=== PATIENT | female | born 1935 | race Caucasian/White ===

== ENCOUNTER 2016-11-24 12:08 | Inpatient (IN) | payer MEDICARE, MEDICAID ==
[~2016-11-24] VITALS: Ht 160 cm; Wt 68.0 kg
[2016-11-24 13:33] LABS: *BILIRUBIN,URIN NEGATIVE (NEGATIVE); *BLOOD, URINE 1+ (NEGATIVE); *CLARITY,URINE CLEAR (CLEAR); *COLOR,URINE YELLOW (YELLOW); *KETONES,URINE NEGATIVE (NEGATIVE); *PROTEIN,URINE 1+ (NEGATIVE); *UROBILINOGEN,URINE 0.2 E.U./dl (NORMAL); LEUKOCYTE ESTERASE ,URINE 1+ (NEGATIVE); NITRITE, URINE NEGATIVE (NEGATIVE); PH,URINE 5.5 (5.0-8.0); UGLUCOSE NEGATIVE (NEGATIVE)
[2016-11-24] MEDS ORDERED: EPOE1VIA12 IJ (13:38)
[2016-11-24] MEDS ORDERED: BUSPAR PO (13:38)
[2016-11-24] MEDS ORDERED: QUET25TA PO (13:38)
[2016-11-24] MEDS ORDERED: OMEP20CA10 PO (13:38)
[2016-11-24] MEDS ORDERED: ASPI81TA31 PO (13:38)
[2016-11-24] MEDS ORDERED: ACET325T53 PO (13:38)
[2016-11-24] MEDS ORDERED: LOSA50TA21 PO (13:38)
[2016-11-24] MEDS ORDERED: FOLI0.8T23 PO (13:38)
[2016-11-24] MEDS ORDERED: LEVO75TA7 PO (13:38)
[2016-11-24] MEDS ORDERED: DONE10TA44 PO (13:38)
[2016-11-24] MEDS ORDERED: TEMA7.5C PO (13:38)
[2016-11-24] MEDS ORDERED: MAGN400T6 PO (13:38)
[2016-11-24] MEDS ORDERED: ONDA4TAB5 PO (13:38)
[2016-11-24] MEDS ORDERED: CARV12.52 PO (13:38)
[2016-11-24 13:45] LABS: *AMPHETAMINE, URINE NEGATIVE (NEGATIVE); *BARBITURATE, URINE NEGATIVE (NEGATIVE); *CANNABINOID, URINE NEGATIVE (NEGATIVE); *COCCAINE, URINE NEGATIVE (NEGATIVE); *OPIATE, URINE NEGATIVE (NEGATIVE); *PHENCYCLIDINE SCREEN,URINE NEGATIVE (NEGATIVE)
[2016-11-24 13:51] LABS: BACTERIA,URINE RARE /HPF (NONE SEEN); SQUAMOUS EPITHELIAL CELL,UR FEW /HPF (NONE SEEN)
[2016-11-24 14:02] LABS: BASOPHILS % (AUTO) 0.5 % (0.0-2.0); EOSINOPHILS # (AUTO) 0.2 K/uL (0.0-0.7); EOSINOPHILS % (AUTO) 2.8 % (0.0-7.0); HEMOGLOBIN 11.2 G/DL (12.0-16.0); LYMPHOCYTES # (AUTO) 1.8 K/UL (0.8-4.8); LYMPHOCYTES % (AUTO) 26.4 % (20.5-51.5); MEAN CORPUSCULAR HEMOGLOBIN 29.3 UUG (27.0-31.0); MEAN CORPUSCULAR HGB CONC 33 g/dL (32.0-37.0); MEAN CORPUSCULAR VOLUME 88.8 FL (81.0-99.0); MONOCYTES # (AUTO) 0.5 K/UL (0.1-1.30); MONOCYTES % (AUTO) 7.9 % (0.0-11.0); NEUTROPHILS # (AUTO) 4.4 K/UL (1.8-8.9); NEUTROPHILS % (AUTO) 62.4 % (38.5-71.5); PLATELET COUNT (AUTO) 173 K/UL (150-450); RED BLOOD CELL COUNT(AUTO) 3.83 MIL/UL (4.2-5.4); WHITE BLOOD COUNT (AUTO) 6.9 K/UL (4.0-11.2)
[2016-11-24 14:10] LABS: CARBON DIOXIDE 21 mmol/L (21-32); CHLORIDE 104 mmol/L (98-107); CREATININE 2.2 mg/dL (0.6-1.3); GLUCOSE 128 mg/dL (74-106); POTASSIUM 4.6 mmol/L (3.5-5.1); UREA NITROGEN, BLOOD 37 mg/dL (7-18)
[2016-11-24 14:15] LABS: ALANINE AMINOTRANSFERASE 17 U/L (14-59); ALKALINE PHOSPHATASE 45 U/L (50-136); ASPARTATE AMINOTRANSFERASE 14 U/L (15-37); BILIRUBIN,DIRECT 0.1 mg/dL (0.0-0.2); BILIRUBIN,TOTAL 0.3 mg/dL (0.2-1.0); TOTAL PROTEIN, SERUM 7.9 g/dL (6.4-8.2)
[2016-11-24 14:23] LABS: THYROID STIMULATING HORMONE 1.086 mIU/mL (0.358-3.740)
[2016-11-24 14:26] LABS: ETHANOL < 3 MG/DL (0-0)
[2016-11-24] MEDS ORDERED: LORAZEPAM 0.5 MG TABLET PO ONE (14:45)
--- NOTE | 2016-11-24 14:50 | NUR ---
Pt placed on 5150 hold by Robert Arreaga.
[2016-11-24] MEDS ORDERED: LORAZEPAM 1 MG TABLET ONE (14:51)
--- NOTE | 2016-11-24 14:59 | NUR ---
SBAR report given to Marisol via telephone.
[2016-11-24 15:00] VITALS: BP 144/68
--- NOTE | 2016-11-24 15:15 | NUR ---
Received this admission from ER per zacarias, 81 yo female, came from [facility] admitted increased agitation towards staff and confusion placed on a 5150 hold for gravely disabled. Routine admission care rendered. Awake, alert, oriented to self. Able to move all extremities on purpose, unsteady gait, ambulating in the hallway. Provided a FWW.
[2016-11-24] MEDS ORDERED: MAGNESIUM HYDROXIDE 30 ML LIQUID UDC PO PRN (16:00)
[2016-11-24] MEDS ORDERED: MAG HYDROX/AL HYDROX/SIMETH 30 ML LIQUID UDC PO PRN (16:00)
[2016-11-24 20:00] VITALS: BP 139/67
[2016-11-24] MEDS ORDERED: hydrALAZINE HCL 25 MG TABLET PO PRN (22:45)
[2016-11-24] MEDS ORDERED: ONDANSETRON HCL 4 MG TABLET PO PRN (22:45)
[2016-11-24] MEDS: TEMAZEPAM 7.5 MG CAPSULE PO PRN (23:10)
[2016-11-24] MEDS ORDERED: SULFAMETH/TRIMETH 800/160 MG TABLET ONE (23:11)
[2016-11-25] MEDS: LORAZEPAM 0.5 MG TABLET PO PRN (02:51)
[2016-11-25] MEDS: ACETAMINOPHEN 325 MG TABLET PO PRN ×2 (02:51→12:22)
[2016-11-25] MEDS ORDERED: LORAZEPAM 0.5 MG TABLET PO PRN (04:30)
[2016-11-25] MEDS ORDERED: LORAZEPAM 0.5 MG TABLET ONE (04:57)
[2016-11-25] MEDS: PANTOPRAZOLE SODIUM 40 MG TABLET.DR PO SCH (07:00)
[2016-11-25 07:30] VITALS: BP 153/73
[2016-11-25] MEDS ORDERED: SULFAMETH/TRIMETH 800/160 MG TABLET PO SCH (09:00)
[2016-11-25] MEDS: MAGNESIUM OXIDE 400 MG TABLET PO SCH (09:52)
[2016-11-25] MEDS: CARVEDILOL 12.5 MG TABLET PO SCH ×2 (09:52→16:50)
[2016-11-25] MEDS: ASPIRIN 81 MG TAB.CHEW PO SCH (09:52)
[2016-11-25] MEDS: FOLIC ACID/VITAMIN B COMP W-C TABLET PO SCH (09:53)
[2016-11-25] MEDS: LEVOTHYROXINE SODIUM 75 MCG TABLET PO SCH (09:54)
[2016-11-25] MEDS ORDERED: DEXTROSE 50% 50 ML DISP.SYRIN IV PRN (10:15)
[2016-11-25] MEDS: LOSARTAN POTASSIUM 50 MG TABLET PO SCH (12:08)
[2016-11-25] MEDS: BLOOD SUGAR DIAGNOSTIC 1 EACH STRIP VI SCH ×3 (12:08→21:14)
[2016-11-25] MEDS: INSULIN REGULAR, HUMAN 300 UNIT/3 ML VIAL SQ PRN (12:26)
--- NOTE | 2016-11-25 13:00 | NUR ---
PATIENT TAKEN TO ROOM AFTER LUNCH. PATIENT IS TIRED.
[2016-11-25 15:19] VITALS: BP 106/50
--- NOTE | 2016-11-25 16:28 | NUR ---
Spoke to SUZANNA Vega, pt sleeping. Will do blev tmrw morning
--- NOTE | 2016-11-25 18:50 | NUR ---
PATIENT SLEEPING SINCE 1300.
[2016-11-25 20:43] VITALS: BP 123/54
[2016-11-25] MEDS: SULFAMETH/TRIMETH 800/160 MG TABLET PO SCH (20:57)
[2016-11-25] MEDS: QUETIAPINE FUMARATE 25 MG TABLET PO SCH (20:57)
--- NOTE | 2016-11-25 22:01 | NUR ---
Received a phone call from Dr. Bustillos: if patient still sleeping, do not give Seroquel 12.5mg PO at HS. At approx. 2014, patient noted awake in her bed. She asked to use the bathroom, then she was helped to the toilet where she urinate, then was assisted to her bed. Seroquel was then given. Patient noted calm and cooperative at this time. We will continue to monitor.
[2016-11-26] MEDS: LEVOTHYROXINE SODIUM 75 MCG TABLET PO SCH (06:18)
[2016-11-26] MEDS: PANTOPRAZOLE SODIUM 40 MG TABLET.DR PO SCH (06:18)
[2016-11-26] MEDS: BLOOD SUGAR DIAGNOSTIC 1 EACH STRIP VI SCH ×4 (06:56→21:35)
[2016-11-26 07:23] LABS: BASOPHILS % (AUTO) 0.7 % (0.0-2.0); EOSINOPHILS # (AUTO) 0.1 K/uL (0.0-0.7); EOSINOPHILS % (AUTO) 1.8 % (0.0-7.0); HEMATOCRIT 33.7 % (37-47); HEMOGLOBIN 11.1 G/DL (12.0-16.0); LYMPHOCYTES # (AUTO) 1.5 K/UL (0.8-4.8); LYMPHOCYTES % (AUTO) 25.6 % (20.5-51.5); MEAN CORPUSCULAR HEMOGLOBIN 29.4 UUG (27.0-31.0); MEAN CORPUSCULAR HGB CONC 33 g/dL (32.0-37.0); MEAN CORPUSCULAR VOLUME 89.1 FL (81.0-99.0); MONOCYTES # (AUTO) 0.5 K/UL (0.1-1.30); MONOCYTES % (AUTO) 9.3 % (0.0-11.0); NEUTROPHILS # (AUTO) 3.8 K/UL (1.8-8.9); NEUTROPHILS % (AUTO) 62.6 % (38.5-71.5); PLATELET COUNT (AUTO) 167 K/UL (150-450); RED BLOOD CELL COUNT(AUTO) 3.79 MIL/UL (4.2-5.4); WHITE BLOOD COUNT (AUTO) 5.9 K/UL (4.0-11.2)
[2016-11-26 07:48] LABS: ALANINE AMINOTRANSFERASE 16 U/L (14-59); ALKALINE PHOSPHATASE 41 U/L (50-136); ASPARTATE AMINOTRANSFERASE 18 U/L (15-37); BILIRUBIN,TOTAL 0.4 mg/dL (0.2-1.0); CARBON DIOXIDE 22 mmol/L (21-32); CHLORIDE 106 mmol/L (98-107); CHOLESTEROL 206 mg/dL (<200); CREATININE 2.4 mg/dL (0.6-1.3); GLUCOSE 105 mg/dL (74-106); HDL CHOLESTEROL 59 mg/dL (40-60); MAGNESIUM 1.6 mg/dL (1.8-2.4); PHOSPHOROUS 3.8 mg/dL (2.5-4.9); POTASSIUM 4.7 mmol/L (3.5-5.1); TOTAL PROTEIN, SERUM 7.1 g/dL (6.4-8.2); TRIGLYCERIDES 86 MG/DL (30-150); UREA NITROGEN, BLOOD 36 mg/dL (7-18)
--- NOTE | 2016-11-26 08:00 | NUR ---
PATIENT STILL LETHARGIC AND DEMANDING TOO STAY IN BED , ORAL INTAKE POOR WITH FREQUENT URINATION TRIPS TO [facility] WITH 1 PERSON ASSIST, CONFUSED DOESN T KNOW WHERE SHE IS PER PT , CONTINUE TO MONITOR PT FOR SAFETY
[2016-11-26] MEDS: CARVEDILOL 12.5 MG TABLET PO SCH ×2 (09:32→16:50)
[2016-11-26] MEDS: LOSARTAN POTASSIUM 50 MG TABLET PO SCH (09:33)
[2016-11-26] MEDS: FOLIC ACID/VITAMIN B COMP W-C TABLET PO SCH (09:33)
[2016-11-26] MEDS: ASPIRIN 81 MG TAB.CHEW PO SCH (09:33)
[2016-11-26] MEDS: MAGNESIUM OXIDE 400 MG TABLET PO SCH (09:33)
[2016-11-26] MEDS ORDERED: MAGNESIUM OXIDE 400 MG TABLET PO ONE (10:30)
--- NOTE | 2016-11-26 12:57 | NUR ---
Initial discharge instructions: The patient resides at [facility] ([facility]) [[address] [place] [address]; ]. ALANA spoke with Leyla in admissions who stated that they will accept the patient back when she is stable and ready for discharge. ALANA spoke with the patient's daughter/KEN Mckenzie who stated that she would like for the patient to return to [facility] upon discharge. ALANA will speak with patient, family, and MD regarding most appropriate discharge plans. SS will form a safe and proper discharge.
[2016-11-26] MEDS: INSULIN REGULAR, HUMAN 300 UNIT/3 ML VIAL SQ PRN ×3 (13:12→21:40)
[2016-11-26] MEDS: ACETAMINOPHEN 325 MG TABLET PO PRN (15:36)
[2016-11-26 16:00] VITALS: BP 128/63
[2016-11-26] MEDS: LORAZEPAM 0.5 MG TABLET PO PRN (16:04)
--- NOTE | 2016-11-26 16:52 | NUR ---
insulin not required blood sugar 1s 110
[2016-11-26] MEDS: SULFAMETH/TRIMETH 800/160 MG TABLET PO SCH (21:23)
[2016-11-26] MEDS: ATORVASTATIN 10 MG TABLET PO SCH (21:23)
[2016-11-26] MEDS: QUETIAPINE FUMARATE 25 MG TABLET PO SCH (21:23)
[2016-11-26 21:54] VITALS: BP 113/58
--- NOTE | 2016-11-26 22:00 | NUR ---
received to care, lying in hr bed, isolative, but pleasant, upon approach. compliant with medications and staff direction. as of 2199, she appears to be asleep, in bed. no distress noted. will continue to monitor closely.
--- NOTE | 2016-11-27 06:00 | NUR ---
slept 5.5 hours, total
[2016-11-27] MEDS: PANTOPRAZOLE SODIUM 40 MG TABLET.DR PO SCH (06:31)
[2016-11-27] MEDS: BLOOD SUGAR DIAGNOSTIC 1 EACH STRIP VI SCH ×4 (06:32→21:56)
[2016-11-27] MEDS: LEVOTHYROXINE SODIUM 75 MCG TABLET PO SCH (06:32)
[2016-11-27 07:30] VITALS: BP 132/46
[2016-11-27] MEDS: ASPIRIN 81 MG TAB.CHEW PO SCH (08:41)
[2016-11-27] MEDS: CARVEDILOL 12.5 MG TABLET PO SCH ×2 (08:42→17:49)
[2016-11-27] MEDS: FOLIC ACID/VITAMIN B COMP W-C TABLET PO SCH (08:42)
[2016-11-27] MEDS: LOSARTAN POTASSIUM 50 MG TABLET PO SCH (08:42)
[2016-11-27] MEDS: MAGNESIUM OXIDE 400 MG TABLET PO SCH (08:42)
[2016-11-27] MEDS: INSULIN REGULAR, HUMAN 300 UNIT/3 ML VIAL SQ PRN ×3 (08:43→17:45)
[2016-11-27] MEDS: LORAZEPAM 0.5 MG TABLET PO PRN (10:18)
[2016-11-27 16:00] VITALS: BP 103/50
[2016-11-27] MEDS: QUETIAPINE FUMARATE 25 MG TABLET PO SCH ×2 (17:46→21:44)
[2016-11-27 18:36] LABS: *URINE TOTAL PROTEIN RANDOM 54.2 mg/dL (<150/24HR)
[2016-11-27 20:39] VITALS: BP 112/60
[2016-11-27] MEDS: ATORVASTATIN 10 MG TABLET PO SCH (21:44)
--- NOTE | 2016-11-27 22:00 | NUR ---
received to care, lying in bed, pleasant, upon approach. compliant with medications and staff direction. assisted to bathroom, as needed. as of 0, she appears to be asleep, in bed. no distress noted. will continue to monitor closely.
[2016-11-27] MEDS: TEMAZEPAM 7.5 MG CAPSULE PO PRN (23:59)
--- NOTE | 2016-11-27 23:59 | NUR ---
PRN restoril given, for insomnia.
--- NOTE | 2016-11-28 00:30 | NUR ---
appears to be asleep. no distress noted.
--- NOTE | 2016-11-28 06:00 | NUR ---
slept 4.5 hours, total
[2016-11-28] MEDS: PANTOPRAZOLE SODIUM 40 MG TABLET.DR PO SCH (06:24)
[2016-11-28] MEDS: BLOOD SUGAR DIAGNOSTIC 1 EACH STRIP VI SCH ×4 (06:25→21:08)
[2016-11-28] MEDS: LEVOTHYROXINE SODIUM 75 MCG TABLET PO SCH (06:25)
[2016-11-28 07:30] VITALS: BP 117/51
[2016-11-28 07:34] LABS: CARBON DIOXIDE 23 mmol/L (21-32); CHLORIDE 106 mmol/L (98-107); CREATININE 3.1 mg/dL (0.6-1.3); GLUCOSE 99 mg/dL (74-106); POTASSIUM 5.1 mmol/L (3.5-5.1); UREA NITROGEN, BLOOD 50 mg/dL (7-18)
[2016-11-28] MEDS: CARVEDILOL 12.5 MG TABLET PO SCH ×2 (09:00→17:00)
[2016-11-28] MEDS: FOLIC ACID/VITAMIN B COMP W-C TABLET PO SCH (09:49)
[2016-11-28] MEDS: ASPIRIN 81 MG TAB.CHEW PO SCH (09:49)
[2016-11-28] MEDS: MAGNESIUM OXIDE 400 MG TABLET PO SCH (09:50)
[2016-11-28] MEDS: QUETIAPINE FUMARATE 25 MG TABLET PO SCH ×3 (09:50→21:00)
[2016-11-28] MEDS: INSULIN REGULAR, HUMAN 300 UNIT/3 ML VIAL SQ PRN ×3 (11:49→21:11)
[2016-11-28 20:00] VITALS: BP 122/71
[2016-11-28] MEDS: ATORVASTATIN 10 MG TABLET PO SCH (21:00)
[2016-11-29] MEDS: LORAZEPAM 0.5 MG TABLET PO PRN ×2 (02:29→09:41)
--- NOTE | 2016-11-29 02:30 | NUR ---
PRN ATIVAN 0.25 MG GIVEN FOR RESTLESSNESS
--- NOTE | 2016-11-29 06:00 | NUR ---
no effect from the PRN ativan. remains awake, and agitated. slept 3.5 hours, total. has been yelling on and off, the last several hours. wants to "go home" she believes that she is 28 years old, and says she has small children at home, to care for. difficult to redirect, or orient to reality. assited with AM care, and shower. currently up in nubia chair. continues to ask to be taken to the bathroom frequently, even when she doesnt need to go. will continue to monitor closely.
[2016-11-29] MEDS: PANTOPRAZOLE SODIUM 40 MG TABLET.DR PO SCH (06:08)
[2016-11-29] MEDS: LEVOTHYROXINE SODIUM 75 MCG TABLET PO SCH (06:08)
[2016-11-29] MEDS: BLOOD SUGAR DIAGNOSTIC 1 EACH STRIP VI SCH ×4 (06:21→23:22)
[2016-11-29 06:40] LABS: *BILIRUBIN,URIN NEGATIVE (NEGATIVE); *BLOOD, URINE 1+ (NEGATIVE); *CLARITY,URINE CLEAR (CLEAR); *KETONES,URINE NEGATIVE (NEGATIVE); *PROTEIN,URINE TRACE (NEGATIVE); *UROBILINOGEN,URINE 0.2 E.U./dl (NORMAL); LEUKOCYTE ESTERASE ,URINE NEGATIVE (NEGATIVE); NITRITE, URINE NEGATIVE (NEGATIVE); PH,URINE 5.5 (5.0-8.0); UGLUCOSE NEGATIVE (NEGATIVE)
[2016-11-29 07:06] LABS: *COLOR,URINE LIGHT YELLOW (YELLOW)
[2016-11-29 07:07] LABS: RBC,URINE 0-3 /HPF (0-3); WBC,URINE 0-3 /HPF (0-3)
[2016-11-29 07:08] LABS: BACTERIA,URINE NONE SEEN /HPF (NONE SEEN); SQUAMOUS EPITHELIAL CELL,UR FEW /HPF (NONE SEEN)
[2016-11-29 07:12] LABS: *URINE TOTAL PROTEIN RANDOM 20.6 mg/dL (<150/24HR)
--- NOTE | 2016-11-29 07:30 | NUR ---
RECEIVED TO CARE, PT IN [facility] IN [facility], PT HYPERVERBAL ASKING STAFF NEARBY IF [facility]
[2016-11-29 07:35] LABS: BASOPHILS % (AUTO) 0.4 % (0.0-2.0); EOSINOPHILS # (AUTO) 0.1 K/uL (0.0-0.7); EOSINOPHILS % (AUTO) 1.8 % (0.0-7.0); HEMATOCRIT 36.1 % (37-47); LYMPHOCYTES % (AUTO) 28.6 % (20.5-51.5); MEAN CORPUSCULAR HEMOGLOBIN 29.3 UUG (27.0-31.0); MEAN CORPUSCULAR HGB CONC 33 g/dL (32.0-37.0); MEAN CORPUSCULAR VOLUME 88.4 FL (81.0-99.0); MONOCYTES # (AUTO) 0.6 K/UL (0.1-1.30); MONOCYTES % (AUTO) 8.8 % (0.0-11.0); NEUTROPHILS # (AUTO) 4.2 K/UL (1.8-8.9); NEUTROPHILS % (AUTO) 60.4 % (38.5-71.5); PLATELET COUNT (AUTO) 196 K/UL (150-450); RED BLOOD CELL COUNT(AUTO) 4.09 MIL/UL (4.2-5.4); WHITE BLOOD COUNT (AUTO) 6.9 K/UL (4.0-11.2)
[2016-11-29 07:44] LABS: ALANINE AMINOTRANSFERASE 24 U/L (14-59); ALKALINE PHOSPHATASE 46 U/L (50-136); ASPARTATE AMINOTRANSFERASE 23 U/L (15-37); BILIRUBIN,TOTAL 0.5 mg/dL (0.2-1.0); CARBON DIOXIDE 23 mmol/L (21-32); CHLORIDE 104 mmol/L (98-107); CREATINE KINASE, TOTAL 348 U/L (26-192); CREATININE 2.8 mg/dL (0.6-1.3); GLUCOSE 116 mg/dL (74-106); MAGNESIUM 1.9 mg/dL (1.8-2.4); PHOSPHOROUS 3.7 mg/dL (2.5-4.9); TOTAL PROTEIN, SERUM 7.9 g/dL (6.4-8.2); UREA NITROGEN, BLOOD 45 mg/dL (7-18)
[2016-11-29] MEDS: ASPIRIN 81 MG TAB.CHEW PO SCH (09:20)
[2016-11-29] MEDS: QUETIAPINE FUMARATE 25 MG TABLET PO SCH ×3 (09:21→23:21)
[2016-11-29] MEDS: FOLIC ACID/VITAMIN B COMP W-C TABLET PO SCH (09:22)
[2016-11-29] MEDS: CARVEDILOL 12.5 MG TABLET PO SCH ×2 (09:22→16:53)
[2016-11-29] MEDS: MAGNESIUM OXIDE 400 MG TABLET PO SCH (09:22)
--- NOTE | 2016-11-29 10:45 | NUR ---
GAVE ATIVAN 0.25 MG PO FOR AGITATION, NOT EFFECTIVE, PT CONSTANTLY ASKING STAFF NEARBY TO GET OUT OF [facility].
[2016-11-29] MEDS: INSULIN REGULAR, HUMAN 300 UNIT/3 ML VIAL SQ PRN ×3 (11:24→23:27)
[2016-11-29 15:00] VITALS: BP 112/58
--- NOTE | 2016-11-29 17:15 | NUR ---
BS 131, PT REFUSED 2 UNITS OF REGULAR INSULIN.
[2016-11-29 20:55] VITALS: BP 101/42
[2016-11-29] MEDS: ATORVASTATIN 10 MG TABLET PO SCH (23:18)
[2016-11-30] MEDS: PANTOPRAZOLE SODIUM 40 MG TABLET.DR PO SCH (07:03)
[2016-11-30] MEDS: LEVOTHYROXINE SODIUM 75 MCG TABLET PO SCH (07:03)
[2016-11-30 07:30] VITALS: BP 119/48
[2016-11-30] MEDS: BLOOD SUGAR DIAGNOSTIC 1 EACH STRIP VI SCH ×4 (07:53→20:28)
[2016-11-30] MEDS: QUETIAPINE FUMARATE 25 MG TABLET PO SCH ×3 (08:43→20:14)
[2016-11-30] MEDS: ASPIRIN 81 MG TAB.CHEW PO SCH (08:43)
[2016-11-30] MEDS: MAGNESIUM OXIDE 400 MG TABLET PO SCH (08:43)
[2016-11-30] MEDS: FOLIC ACID/VITAMIN B COMP W-C TABLET PO SCH (08:43)
[2016-11-30] MEDS: CARVEDILOL 12.5 MG TABLET PO SCH ×2 (08:44→16:57)
[2016-11-30] MEDS ORDERED: BISACODYL 5 MG TABLET.DR PO ONE (13:00)
[2016-11-30] MEDS ORDERED: BISACODYL 10 MG SUPP.RECT RC PRN (13:00)
[2016-11-30] MEDS: DOCUSATE SODIUM 250 MG CAPSULE PO SCH (13:17)
[2016-11-30 15:22] VITALS: BP 113/55
[2016-11-30 20:00] VITALS: BP 87/45
[2016-11-30] MEDS: ATORVASTATIN 10 MG TABLET PO SCH (20:14)
--- NOTE | 2016-11-30 20:15 | NUR ---
SEROQUEL 12.5MG PO NOT GIVEN DUE TO LOW BP. WILL CONTINUE TO MONITOR AND ASSESS.
[2016-11-30] MEDS: INSULIN REGULAR, HUMAN 300 UNIT/3 ML VIAL SQ PRN (20:28)
[2016-12-01 00:10] VITALS: BP 134/70
[2016-12-01] MEDS: TEMAZEPAM 7.5 MG CAPSULE PO PRN ×2 (00:14→21:58)
--- NOTE | 2016-12-01 00:15 | NUR ---
RECHECKED PATIENTS BLOOD PRESSURE. WNL. 134/70. HR-67. PATIENT APPEARS RESTLESS. PT. GIVEN RESTORIL 7.5MG PO PRN FOR SLEEP. BED ALARM ON. WILL CONTINUE TO MONITOR.
[2016-12-01] MEDS: LORAZEPAM 0.5 MG TABLET PO PRN ×2 (02:26→23:29)
--- NOTE | 2016-12-01 02:26 | NUR ---
PATIENT AWAKE. STILL RESTLESS AND APPEARS ANXIOUS. KEEPS GETTING OOB. PATIENT GIVEN ATIVAN 0.25MG PO PRN FOR ANXIETY. BED ALARM ON. WILL CONTINUE TO MONITOR AND ASSESS.
[2016-12-01] MEDS: PANTOPRAZOLE SODIUM 40 MG TABLET.DR PO SCH (06:13)
[2016-12-01] MEDS: LEVOTHYROXINE SODIUM 75 MCG TABLET PO SCH (06:13)
[2016-12-01] MEDS: BLOOD SUGAR DIAGNOSTIC 1 EACH STRIP VI SCH ×2 (06:40→11:30)
[2016-12-01 07:20] LABS: BASOPHILS # (AUTO) 0.1 K/uL (0.0-8.0); BASOPHILS % (AUTO) 0.7 % (0.0-2.0); EOSINOPHILS # (AUTO) 0.3 K/uL (0.0-0.7); EOSINOPHILS % (AUTO) 3.9 % (0.0-7.0); HEMATOCRIT 33.3 % (37-47); HEMOGLOBIN 11.2 G/DL (12.0-16.0); LYMPHOCYTES # (AUTO) 2.3 K/UL (0.8-4.8); MEAN CORPUSCULAR HEMOGLOBIN 29.9 UUG (27.0-31.0); MEAN CORPUSCULAR HGB CONC 34 g/dL (32.0-37.0); MEAN CORPUSCULAR VOLUME 89.1 FL (81.0-99.0); MONOCYTES # (AUTO) 0.8 K/UL (0.1-1.30); MONOCYTES % (AUTO) 10.5 % (0.0-11.0); NEUTROPHILS # (AUTO) 3.8 K/UL (1.8-8.9); NEUTROPHILS % (AUTO) 53.9 % (38.5-71.5); PLATELET COUNT (AUTO) 185 K/UL (150-450); RED BLOOD CELL COUNT(AUTO) 3.74 MIL/UL (4.2-5.4); WHITE BLOOD COUNT (AUTO) 7.3 K/UL (4.0-11.2)
[2016-12-01 07:30] VITALS: BP 127/57
[2016-12-01 07:56] LABS: ALANINE AMINOTRANSFERASE 23 U/L (14-59); ALKALINE PHOSPHATASE 45 U/L (50-136); ASPARTATE AMINOTRANSFERASE 31 U/L (15-37); BILIRUBIN,TOTAL 0.6 mg/dL (0.2-1.0); CARBON DIOXIDE 26 mmol/L (21-32); CHLORIDE 102 mmol/L (98-107); CREATININE 3.1 mg/dL (0.6-1.3); GLUCOSE 121 mg/dL (74-106); PHOSPHOROUS 3.5 mg/dL (2.5-4.9); POTASSIUM 4.2 mmol/L (3.5-5.1); TOTAL PROTEIN, SERUM 7.6 g/dL (6.4-8.2); UREA NITROGEN, BLOOD 56 mg/dL (7-18)
[2016-12-01] MEDS: ASPIRIN 81 MG TAB.CHEW PO SCH (09:06)
[2016-12-01] MEDS: DOCUSATE SODIUM 250 MG CAPSULE PO SCH (09:06)
[2016-12-01] MEDS: MAGNESIUM OXIDE 400 MG TABLET PO SCH (09:06)
[2016-12-01] MEDS: QUETIAPINE FUMARATE 25 MG TABLET PO SCH ×2 (09:06→16:08)
[2016-12-01] MEDS: FOLIC ACID/VITAMIN B COMP W-C TABLET PO SCH (09:07)
[2016-12-01] MEDS: CARVEDILOL 12.5 MG TABLET PO SCH ×2 (09:07→16:08)
[2016-12-01] MEDS ORDERED: INSULIN REGULAR, HUMAN 300 UNIT/3 ML VIAL SQ PRN ×2 (11:47→11:49)
[2016-12-01] MEDS ORDERED: DEXTROSE 50% 50 ML DISP.SYRIN IV PRN (11:48)
[2016-12-01] MEDS ORDERED: CEPHALEXIN MONOHYDRATE 500 MG CAPSULE PO SCH (14:15)
[2016-12-01] MEDS: CEPHALEXIN MONOHYDRATE 250 MG CAPSULE PO SCH (15:50)
[2016-12-01 17:00] VITALS: BP 136/62
[2016-12-01] MEDS: ATORVASTATIN 10 MG TABLET PO SCH (19:54)
[2016-12-01] MEDS ORDERED: QUETIAPINE FUMARATE 25 MG TABLET PO SCH ×2 (20:00→21:00)
[2016-12-01 20:38] VITALS: BP 122/62
--- NOTE | 2016-12-01 21:58 | NUR ---
received to care, up in the nubia chair, appearing confused, yeling out intermittently. states she wants to leave, and go home, with her . reality orientation provided, but she remains confused, and very fixed in her beliefs. compliant with medications and staff direction. as of 2157, she remains agitated, difficult to redirect. PRN restoril was given at this time. will continue to monitor closely.
--- NOTE | 2016-12-01 23:29 | NUR ---
remains awake, and restless, yelling out intermittently. PRN ativan was given at this time.
--- NOTE | 2016-12-02 00:30 | NUR ---
appears calmer, but remains restless. assisted to bed, but she attempted to climb out, so she was assisted back to the chair, after going to the bathroom. currently eating a snack. no distress noted. will continue to monitor closely.
--- NOTE | 2016-12-02 02:30 | NUR ---
remains awake, and restless. yelling out intermittently. assisted with shower. currently up in nubia chair, continues to yell. reality orientation provided.
[2016-12-02 03:09] LABS: A/G RATIO 0.8 (0.7-1.7); ALBUMIN 3.3 g/dL (2.9-4.4); ALPHA-1-GLOBULIN 0.3 g/dL (0.0-0.4); ALPHA-2-GLOBULIN 1.1 g/dL (0.4-1.0); BETA GLOBULIN 1.1 g/dL (0.7-1.3); GAMMA GLOBULIN 1.5 g/dL (0.4-1.8); GLOBULIN, TOTAL 4.1 g/dL (2.2-3.9); M-SPIKE Not Observed g/dL (Not Observed)
--- NOTE | 2016-12-02 06:00 | NUR ---
slept 0.5 hours, total. remains awake, and restless. cooperative with AM care. no distress noted.
[2016-12-02] MEDS: PANTOPRAZOLE SODIUM 40 MG TABLET.DR PO SCH (06:12)
[2016-12-02] MEDS: LEVOTHYROXINE SODIUM 75 MCG TABLET PO SCH (06:13)
[2016-12-02] MEDS: BLOOD SUGAR DIAGNOSTIC 1 EACH STRIP VI SCH (06:35)
[2016-12-02 07:30] VITALS: BP 155/73
[2016-12-02 07:34] LABS: CARBON DIOXIDE 26 mmol/L (21-32); CHLORIDE 103 mmol/L (98-107); CREATINE KINASE, TOTAL 390 U/L (26-192); CREATININE 3.2 mg/dL (0.6-1.3); GLUCOSE 132 mg/dL (74-106); POTASSIUM 4.6 mmol/L (3.5-5.1); UREA NITROGEN, BLOOD 63 mg/dL (7-18)
[2016-12-02] MEDS: QUETIAPINE FUMARATE 25 MG TABLET PO SCH ×3 (08:33→20:00)
[2016-12-02] MEDS: FOLIC ACID/VITAMIN B COMP W-C TABLET PO SCH (08:33)
[2016-12-02] MEDS: MAGNESIUM OXIDE 400 MG TABLET PO SCH (08:33)
[2016-12-02] MEDS: ASPIRIN 81 MG TAB.CHEW PO SCH (08:33)
[2016-12-02] MEDS: CARVEDILOL 12.5 MG TABLET PO SCH ×2 (08:34→16:57)
[2016-12-02] MEDS: DOCUSATE SODIUM 250 MG CAPSULE PO SCH (08:34)
[2016-12-02] MEDS: CEPHALEXIN MONOHYDRATE 250 MG CAPSULE PO SCH (15:06)
[2016-12-02 16:34] VITALS: BP 146/65
[2016-12-02 19:30] VITALS: BP 119/62
[2016-12-02] MEDS: ATORVASTATIN 10 MG TABLET PO SCH (21:00)
[2016-12-02] MEDS: MIRTAZAPINE 15 MG TABLET PO SCH (21:00)
--- NOTE | 2016-12-02 22:00 | NUR ---
received to care, lying in bed,asleep, easy to awaken, but falls right back to sleep. vital signs stable. all bedtime medications were held. as of 2200, she continues to sleep. no distress noted. will continue to monitor closely.
[2016-12-03] MEDS: LEVOTHYROXINE SODIUM 75 MCG TABLET PO SCH (06:30)
[2016-12-03] MEDS: PANTOPRAZOLE SODIUM 40 MG TABLET.DR PO SCH (06:30)
[2016-12-03] MEDS: BLOOD SUGAR DIAGNOSTIC 1 EACH STRIP VI SCH (06:49)
[2016-12-03 06:55] LABS: BASOPHILS % (AUTO) 0.6 % (0.0-2.0); EOSINOPHILS # (AUTO) 0.2 K/uL (0.0-0.7); EOSINOPHILS % (AUTO) 3.7 % (0.0-7.0); HEMATOCRIT 34.1 % (37-47); HEMOGLOBIN 11.1 G/DL (12.0-16.0); LYMPHOCYTES % (AUTO) 30.6 % (20.5-51.5); MEAN CORPUSCULAR HEMOGLOBIN 29.3 UUG (27.0-31.0); MEAN CORPUSCULAR HGB CONC 33 g/dL (32.0-37.0); MEAN CORPUSCULAR VOLUME 89.8 FL (81.0-99.0); MONOCYTES # (AUTO) 0.6 K/UL (0.1-1.30); MONOCYTES % (AUTO) 8.8 % (0.0-11.0); NEUTROPHILS # (AUTO) 3.9 K/UL (1.8-8.9); NEUTROPHILS % (AUTO) 56.3 % (38.5-71.5); PLATELET COUNT (AUTO) 186 K/UL (150-450); RED BLOOD CELL COUNT(AUTO) 3.79 MIL/UL (4.2-5.4); WHITE BLOOD COUNT (AUTO) 6.7 K/UL (4.0-11.2)
[2016-12-03 07:00] LABS: CARBON DIOXIDE 26 mmol/L (21-32); CHLORIDE 106 mmol/L (98-107); CREATININE 2.8 mg/dL (0.6-1.3); GLUCOSE 121 mg/dL (74-106); POTASSIUM 5.1 mmol/L (3.5-5.1); UREA NITROGEN, BLOOD 61 mg/dL (7-18)
[2016-12-03 07:30] VITALS: BP 148/63
[2016-12-03] MEDS: QUETIAPINE FUMARATE 25 MG TABLET PO SCH ×3 (08:42→20:56)
[2016-12-03] MEDS: CARVEDILOL 12.5 MG TABLET PO SCH ×2 (08:42→17:15)
[2016-12-03] MEDS: ASPIRIN 81 MG TAB.CHEW PO SCH (08:42)
[2016-12-03] MEDS: FOLIC ACID/VITAMIN B COMP W-C TABLET PO SCH (08:42)
[2016-12-03] MEDS: MAGNESIUM OXIDE 400 MG TABLET PO SCH (08:42)
[2016-12-03] MEDS: DOCUSATE SODIUM 250 MG CAPSULE PO SCH (08:42)
[2016-12-03 16:00] VITALS: BP 121/58
[2016-12-03] MEDS: CEPHALEXIN MONOHYDRATE 250 MG CAPSULE PO SCH (16:14)
[2016-12-03 20:10] VITALS: BP 104/50
[2016-12-03] MEDS: MIRTAZAPINE 15 MG TABLET PO SCH (20:56)
[2016-12-03] MEDS: ATORVASTATIN 10 MG TABLET PO SCH (20:56)
--- NOTE | 2016-12-03 22:00 | NUR ---
received to care, lying bed, asleep, but easy to awaken, during rounds. compliant with medications and staff direction. as of 0, she appears to be asleep. no dsitress noted. will continue to monitor closely.
[2016-12-04 00:44] LABS: *BILIRUBIN,URIN NEGATIVE (NEGATIVE); *BLOOD, URINE NEGATIVE (NEGATIVE); *CLARITY,URINE CLEAR (CLEAR); *COLOR,URINE YELLOW (YELLOW); *KETONES,URINE NEGATIVE (NEGATIVE); *PROTEIN,URINE 1+ (NEGATIVE); *UROBILINOGEN,URINE 0.2 E.U./dl (NORMAL); LEUKOCYTE ESTERASE ,URINE NEGATIVE (NEGATIVE); NITRITE, URINE NEGATIVE (NEGATIVE); UGLUCOSE NEGATIVE (NEGATIVE)
[2016-12-04 00:49] LABS: RBC,URINE NONE SEEN /HPF (0-3); SQUAMOUS EPITHELIAL CELL,UR FEW /HPF (NONE SEEN); WBC,URINE 0-3 /HPF (0-3)
[2016-12-04 00:50] LABS: BACTERIA,URINE NONE SEEN /HPF (NONE SEEN)
[2016-12-04 00:51] LABS: *CREATININE,URINE 113.6 mg/dL (30-125); *URINE TOTAL PROTEIN RANDOM 38.6 mg/dL (<150/24HR)
--- NOTE | 2016-12-04 06:00 | NUR ---
slept 6.0 hours, total.
[2016-12-04] MEDS: PANTOPRAZOLE SODIUM 40 MG TABLET.DR PO SCH (06:23)
[2016-12-04] MEDS: LEVOTHYROXINE SODIUM 75 MCG TABLET PO SCH (06:23)
[2016-12-04] MEDS: BLOOD SUGAR DIAGNOSTIC 1 EACH STRIP VI SCH (06:24)
[2016-12-04 07:30] VITALS: BP 138/68
[2016-12-04] MEDS: FOLIC ACID/VITAMIN B COMP W-C TABLET PO SCH (08:19)
[2016-12-04] MEDS: DOCUSATE SODIUM 250 MG CAPSULE PO SCH (08:19)
[2016-12-04] MEDS: ASPIRIN 81 MG TAB.CHEW PO SCH (08:19)
[2016-12-04] MEDS: QUETIAPINE FUMARATE 25 MG TABLET PO SCH (08:19)
[2016-12-04] MEDS: MAGNESIUM OXIDE 400 MG TABLET PO SCH (08:19)
[2016-12-04 08:20] VITALS: BP 138/68
[2016-12-04] MEDS: CARVEDILOL 12.5 MG TABLET PO SCH (08:20)
--- NOTE | 2016-12-04 08:49 | NUR ---
DC note: The patient will be discharged today back to [facility] ([facility]) [[address] [place] [address]; ] via ambulance 11:00 am. ALANA spoke with Leyla in admissions who stated that they will be accepting the patient back today. ALANA spoke with the patient's daughter/KEN Mckenzie who is aware agreeable with the discharge plan. The patient will follow-up at the facility with spearer Dr. Franck Robertson and psychiatrist Dr. Marion Bustillos.
--- NOTE | 2016-12-04 09:41 | NUR ---
SITTING UP ON THE FABRICIO CHAIR BY THE NURSES STATION ALERT TO SELF WITH CONFUSSION AND DISORIENTATION REPEATING SELF OVER AND OVER AGAIN.DISCHARGE PLANNING AWAITING FOR DR WAITE TO OKAY DISCHARGE BACK TO [facility] TODAY.
--- NOTE | 2016-12-04 10:50 | NUR ---
CALLED [facility] AND GAVE REPORT TO PRASAD BRISENO FOR CONTINUING CARE.
--- NOTE | 2016-12-04 11:01 | NUR ---
GPS/RN- Discharge confirmed with Dr Bustillos, verified medical clearance with Dr Kurtis Rehman, [employer] and Dr Ayala, Renal. Patient to follow up with Dr Bustillos and Dr Robertson on discharge. patient also to follow up with Renal Dr Block on discharge, stable for discharge
--- NOTE | 2016-12-04 11:45 | NUR ---
PATIENT DISCHARGED TO [facility] PICKED UP BY THE MED RESPONSE WITH DISCHARGE INSTRUCTIONS AND ALL HER PERSONAL BELONGINGS IN SATISFACTORY CONDITION.
== END 2016-12-04 11:45 | DRG 885 ==
LOC: ER 12:25 → GPS 15:19
PROVIDERS: ADMIT Psychiatry & Neurology Psychosomatic Medicine; ATTEND Nurse Practitioner Acute Care
DX: F32.3 Major depressive disorder, single episode, severe with psychotic features (principal); F02.81 Dementia in other diseases classified elsewhere, unspecified severity, with behavioral disturbance; N18.9 Chronic kidney disease, unspecified; N17.9 Acute kidney failure, unspecified; E11.65 Type 2 diabetes mellitus with hyperglycemia; I69.359 Hemiplegia and hemiparesis following cerebral infarction affecting unspecified side; M62.82 Rhabdomyolysis; N39.0 Urinary tract infection, site not specified; G30.9 Alzheimer's disease, unspecified; E78.5 Hyperlipidemia, unspecified; R26.9 Unspecified abnormalities of gait and mobility; E03.9 Hypothyroidism, unspecified; Z79.82 Long term (current) use of aspirin; E11.22 Type 2 diabetes mellitus with diabetic chronic kidney disease; I12.9 Hypertensive chronic kidney disease with stage 1 through stage 4 chronic kidney disease, or unspecified chronic kidney disease; E83.42 Hypomagnesemia; D64.9 Anemia, unspecified; K59.00 Constipation, unspecified; Z91.81 History of falling; M19.90 Unspecified osteoarthritis, unspecified site; K21.9 Gastro-esophageal reflux disease without esophagitis; I65.29 Occlusion and stenosis of unspecified carotid artery; Z79.899 Other long term (current) drug therapy
CPT/HCPCS: 36415; 71010; 76770; 80307; 83735; 83970; 84100; 84155; 84156; 84165; 84300; 84443; 85025; 85730; 87086; 93005; 97116; 97161; 97530; A4663; G0480